=== PATIENT | male | born 1945 | race Caucasian/White ===

== ENCOUNTER → 2020-12-15 | Outpatient (CLI) | payer OTHER ==
[~2020-12-15] MED LIST: AVAPRO150 MG PO; GABAPENTIN400 MG PO; LEVOTHYROXINE25 MCG PO; LIPITOR40 MG PO; METFORMIN HCL500 M3 PO; NORVASC5 MG PO; PROSCAR5 MG PO; TAMS0.4C PO
== END | disposition home or self-care (01) ==
LOC: TOM 09:45
PROVIDERS: ATTEND Urology
DX: C67.9 Malignant neoplasm of bladder, unspecified (principal)
CPT/HCPCS: 74178; Q9965

== ENCOUNTER 2021-01-24 06:24 | Day surgery (SDC) | payer OTHER | END 2021-01-24 15:50 | disposition home or self-care (01) | LOC: CIR.AMB 06:24 | PROVIDERS: ATTEND Urology | DX: C67.8 Malignant neoplasm of overlapping sites of bladder (principal); N30.80 Other cystitis without hematuria; Z20.822 Contact with and (suspected) exposure to COVID-19 ==

== ENCOUNTER 2024-03-28 06:11 | Day surgery (SDC) | payer OTHER ==
[2024-03-21 11:11] LABS: HEMATOCRIT 39.6 % (39.0-48.0); HEMOGLOBIN 13.2 g/dL (13-16.00); MEAN CELL VOLUME 92.8 fL (80.0-100.00); MEAN CORPUSCULAR HEMOGLOBIN 30.9 pg (27.00-32.0); MEAN CORPUSCULAR HGB CONC 33.3 g/dl (32.0-36.0); PLATELET COUNT 279 K/uL (150-450); RED BLOOD COUNT 4.26 M/uL (4.00-6.00); RED CELL DISTRIBUTION WIDTH 15.1 % (11.5-14.5)
[2024-03-21 11:55] LABS: INR 1.1; PARTIAL THROMBOPLASTIN TIME 31.3 SECONDS (22.0-34.0); PROTHROMBIN TIME 11.9 SECONDS (9.0-11.5)
[2024-03-21 12:44] LABS: CALCIUM 9.8 mg/dL (8.5-10.1); CREATININE SERUM 1.31 mg/dL (0.70-1.30); GFR 52.92; POTASSIUM 4.43 mEq/L (3.5-5.1)
[~2024-03-28 06:11] MED LIST changes: +CARVEDILOL ER40 MG; +PEPCID AC10 MG; +VALSARTAN40 MG; +VITAMIN D310 MC4
[2024-03-28] MEDS ORDERED: GENTAMICIN SULFATE 40 MG/ML VIAL ONE (12:34)
== END 2024-03-28 17:30 | disposition home or self-care (01) ==
LOC: CIR.AMB 06:11
PROVIDERS: ATTEND Urology
DX: C67.9 Malignant neoplasm of bladder, unspecified (principal); I10 Essential (primary) hypertension; E11.9 Type 2 diabetes mellitus without complications; E03.9 Hypothyroidism, unspecified